=== PATIENT | male | born 1950 | race Caucasian/White ===

== ENCOUNTER 2021-03-22 16:58 | Outpatient (CLI) | payer MEDICARE, SELFPAY ==
[2021-03-22 17:43] LABS: Hematocrit 39.2 % (37.0-46.0); Hemoglobin 13.7 g/dL (12.4-15.3); Mean Corpuscular HGB Conc 34.9 g/dL (32.0-36.0); Mean Corpuscular Hemoglobin 36.4 pg (27.0-31.0); Mean Corpuscular Volume 104.3 fL (78.0-102.0); Mean Platelet Volume 11.2 fl (8.7-11.0); Platelet Count Result 192 K/mm3 (150-420); Red Blood Count 3.76 M/mm3 (4.70-6.10); Red Cell Distribution Width 12.2 % (11.6-14.4); White Blood Count 6.1 K/mm3 (4.8-10.8)
[2021-03-22 19:00] LABS: Erythrocyte Sedimentation Rate 23 mm/hr (0-20)
[2021-03-22 19:50] LABS: Alanine Aminotransferase 25 U/L (16-63); Alkaline Phosphatase 75 U/L (46-116); Anion Gap 12 mmol/L (8-16); Aspartate Amino Transferase 22 U/L (15-37); Bilirubin,Total 0.5 mg/dL (0.00-1.00); Blood Urea Nitrogen 14 mg/dL (7-18); CRP < 0.5 mg/dL (0.0-0.9); Calcium 8.9 mg/dL (8.5-10.1); Carbon Dioxide 29 mmol/L (21-32); Chloride 101 mmol/L (98-108); Cholesterol 222 mg/dL (0-200); Estimated Glomerular Filt Rate > 60; Glucose 89 mg/dL (70-99); HDL Direct 59 mg/dL (40-60); LDL Cholesterol Calculated 134 mg/dL (<130); Osmolality Calculated 293 mOsm/kg (285-295); Potassium 4.1 mmol/L (3.5-5.1); Sodium 142 mmol/L (136-145); Total Protein 7.4 g/dL (6.4-8.2); Triglycerides 146 mg/dL (0-150); Vitamin B12 805 pg/mL (193-986)
[2021-03-22 19:51] LABS: Folic Acid > 20.0 ng/mL (8.6->20)
[2021-03-22 19:52] LABS: Thyroid Stimulating Hormone Reflex 1.15 u/IU/mL (0.36-3.74)
[2021-03-27 14:25] LABS: Vitamin D 25 Hydroxy 64 ng/mL (30-100)
[2021-03-29 11:43] LABS: Gliadin AB, IgG 4 Units (<20); Reticulin IgA Negative (Negative); TTG IGA AB 1 U/mL (<4)
== END 2021-03-22 16:59 | disposition home or self-care (01) ==
LOC: CHSLAB 17:02
PROVIDERS: PCP Family Medicine; Visit Provider Family Medicine
DX: E11.9 Type 2 diabetes mellitus without complications (principal); I10 Essential (primary) hypertension; E53.8 Deficiency of other specified B group vitamins; Z79.899 Other long term (current) drug therapy
CPT/HCPCS: 36415; 80053; 80061; 82306; 82607; 82746; 83516; 84443; 85027; 85652; 86140; 86255

== ENCOUNTER 2021-03-27 12:27 | Outpatient (CLI) | payer MEDICARE, SELFPAY ==
[2021-03-27 12:55] LABS: Occult Blood Negative (Negative)
[2021-03-27 12:56] LABS: Occult Blood Negative (Negative)
[2021-03-27 12:56] LABS: Occult Blood Negative (Negative)
[2021-04-02 01:18] LABS: Calprotectin, Stool 197 mcg/g
[2021-04-03 01:33] LABS: Lactoferrin, Stool Positive (Negative)
[2021-04-04 04:02] LABS: FECFAT Total Specimen Weight 18 g
== END 2021-03-27 12:28 | disposition home or self-care (01) ==
PROVIDERS: PCP Family Medicine; Visit Provider Family Medicine
DX: I10 Essential (primary) hypertension (principal); K52.9 Noninfective gastroenteritis and colitis, unspecified
CPT/HCPCS: 82272; 82710; 83630; 83993; 87177; 87209; 87324

== ENCOUNTER 2022-11-15 16:20 | Outpatient (RCR) | payer MEDICARE, SELFPAY ==
--- NOTE | 2022-11-15 17:00 | PTOPEVAL1 ---
Assessment and note entered by JT File, PT Evaluation Information Assessment Status Evaluation Diagnosis R olecranon fracture Onset 10/01/22 Subjective Information patient reports he fractured his R elbow on . he reports he was up on a ladder and at his home and he slipped and fell on the R elbow. he reports he had surgery on the R elbow on 10/04/22. he reports up until friday of this week he was in a brace of the R elbow. Reported Pain Level Pain Score 2: Self Report Assessment PT Clinical Summary mr. norton is a 72 yo man who presents to skilled PT services for evaluation and treatment of R elbow pain, weakness, and decreased rom following a fall and fractue. he is reovering from an olecranon fracture and ORIF of the R elbow. he displays decerased rom, strength, and pain in the R elbow. he would benefit from continued skilled PT services to improve his objective/functional deficits and return to his PLOF/QOL. Plan of Care Interventions Electrical Stimulation,Hot Pack/Cold Pack,Manual Therapy,Neuro Re-education,Patient/Caregiver Educati,Therapeutic Activities,Therapeutic Exercise PT Services Indicated Yes Treatment Frequency and 3x weekly for 12 visits Duration These treatments will address the objective and functional deficits as defined above. The patient will be advanced safely and appropriately in order for the patient to progress towards his/her prior level of function. Additional exercises will be introduced and as well as a comprehensive home exercise program upon discharge, if needed, ?to ensure carryover of functional gains achieved in the clinic. This treatment plan has been reviewed and agreement upon by the patient.
--- NOTE | 2022-12-12 16:03 | PTOPPROG ---
Assessment and note entered by Ciera Rivers, PT Evaluation Information Assessment Status Progress Diagnosis R olecranon fx Onset 10/01/22 Subjective Information Eric reports his right elbow is doing well overall. He still gets pain at night that wakes him up at a 4-5/10 level. He is able to perform all daily activities including lifting overhead. He does still struggle to straighten his right elbow. He will be leaving in a couple days to visit his mother out of state for a week. Assessment PT Clinical Summary Eric Cummins has completed 10 skilled PT visits following an ORIF for a right olecranon fx sustained on 10/01/22. He is reporting minimal to moderate pain that typically occurs at night and tightness when trying to extend the elbow. He is able to perform ADLs without limitations. He objectively demonstrates improved right elbow active and passive ROM as well as improved right elbow strength. 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 He will be out of town for one week and was instructed to continue home exercises. He will follow up with PT once he returns to reassess progress while not participating in formal PT. Plan of Care Interventions Electrical Stimulation,Hot Pack/Cold Pack,Manual Therapy,Patient/Caregiver Educati,Therapeutic Activities,Therapeutic Exercise PT Services Indicated Yes Treatment Frequency and 1 time a week for 2 visits Duration These treatments will address the objective and functional deficits as defined above. The patient will be advanced safely and appropriately in order for the patient to progress towards his/her prior level of function. Additional exercises will be introduced and as well as a comprehensive home exercise program upon discharge, if needed, ?to ensure carryover of functional gains achieved in the clinic. This treatment plan has been reviewed and agreement upon by the patient.
--- NOTE | 2023-01-01 12:12 | PTOPDC ---
Assessment and note entered by Ciera Rivers, PT Evaluation Information Assessment Status Discharge Diagnosis R Olecranon Fx Onset 10/01/22 Subjective Information Eric reports his right elbow is doing well overall. He still notes tightness in it but it is not preventing him from complete daily activities. He was able to play golf yesterday and had no pain during golf but had achiness afterwards. He feels his right elbow is doing well enough to discontinue formal PT. Reported Pain Level Pain Score 0: Self Report Assessment PT Clinical Summary Eric Cummins has completed 12 skilled PT visits following an ORIF for a right olecranon fracture sustained on 10/01/22. He is reporting the ability to perform all ADLs and even played a round of golf on 12/31/22 without difficulty. He objectively demonstrates improved right elbow AROM, improved right elbow strength, and improved functional abilities. He still has mild deficits in right elbow extension AROM however, he has functional motion and is independent in a home program to continue stretching and strengthening. He will be discharged from formal PT. Plan of Care PT Services Indicated Yes
== END 2023-01-01 14:05 | disposition home or self-care (01) ==
LOC: CHSPT 16:20
PROVIDERS: PCP Family Medicine; Visit Provider Orthopaedic Surgery
DX: S52.024D Nondisplaced fracture of olecranon process without intraarticular extension of right ulna, subsequent encounter for closed fracture with routine healing (principal)
CPT/HCPCS: 97014; 97110; 97140; 97161; G0283

== ENCOUNTER → 2025-06-27 15:27 | Outpatient (REF) | payer MEDICARE, SELFPAY ==
--- NOTE | 2025-06-27 15:27 | S_PTH ---
PATIENT: Eric Cummins LOC: [facility] U#:[id number] AGE/SX: 75/M ROOM: RE06/27/[address]: Savi Lind MD : [id number] BED: DIS: SPEC #: [id number] RECD: 06/28/25 07:32 STATUS: MICHAEL REJatin #: [id number] SUSAN: 06/27/25 15:[address]: Savi Lind DEPT: [facility] Surgical RECD BY: Cee Miranda ENTERED: 06/28/25 07:33 SP TYPE: Surgical OTHR DR: Russell Taylor DO Tissues: A - Cyst Procedures: Hematoxylin and Eosin Stain Gross and Microscopic Level 4
--- OUTSIDE RECORDS SUMMARY | 2025-06-27 18:06 | XMS_ITS | Clinical Summary ---
Author Organization [facility] Address [address] [place] [address] Care Team Providers Care Technical Support 1 Software Engineer Name Role Phone Unavailable Primary Care Provider Unavailabl e Source Comments [facility],non-owned Affiliates and Associated Physician Practices is amultiple site organization consisting of ambulatory clinics and hospital sitesin [place], [place], [place] and [place]. This disclosure is being madepursuant to the Care Everywhere program and may not contain all information available regarding this patient. Last updated 18.[facility] Social History Tobacco Use Types Packs/Day Years Used Date Smoking Tobacco: Never Assessed Sex and Gender Information Value Date Recorded Sex Assigned at Not on file Legal Sex Male 6:18 AM PARK MAINTAINER Gender Identity Not on file Sexual Orientation Not on file Plan of Treatment Upcoming Encounters Date Type Department Care Team (Late st Contact Info) Description 10/04/2025 11:20 AM PARK MAINTAINER Office Visit [facility] - Family Medicine [address] [place] [address] Edgard Najera DO [address] [place] [phone] Health Maintenance Due Date Last Done Comments HEPATITIS C SCREENING 03/24/1968 DTAP/TDAP/TD VACCINES (1 - Tdap) 1967 PNEUMOCOCCAL VACCINE 50+ (1 of 1 - PCV) 1998 ZOSTER VACCINE (1 of 2) 1998 Respiratory Syncytial Virus (RSV) Vaccine Pt: or over 60 yrs (1 - 1-dose 75+ series) 2023 DEPRESSION SCREENING 08/04/2024 COVID-19 VACCINE (1 - 2024-2 6 season) 2025 INFLUENZA VACCINE (#1) 2025 HEPATITIS B VACCINE Aged Out No longe r eligible based on patient's age to complete this topic HIB VACCINE Aged Out No longer eligi ble based on patient's age to complete this topic HPV VACCINE Aged Out No longer eligi ble based on patient's age to complete this topic MENINGOCOCCAL (Group B) VACC INE SHARED DECISION-MAKING Aged Out No longer eligibl e based on patient's age to complete this topic MENINGOCOCCAL GROUPS A/C/Y/W VACCINE Aged Out No longer eligible b ased on patient's age to complete this topic
--- OUTSIDE RECORDS SUMMARY | 2025-06-27 18:06 | XMS_ITS | Clinical Summary ---
Author Organization [facility] Address [address] [place] [address] Care Team Providers Care Cardiac Catheterization Technologist Name Role Phone Brown Steve MD Primary Care Provider Dinh Vidal MD Unavailable Allergies Active Allergy Reactions Criticality Noted Date Comments Atorvastatin Myalgias 09/02/2023 Lovastatin Myalgias 09/02/2023 Medications temazepam (RESTORIL) 30 MG capsule Take 1 capsule (30 mg total) by mouth nightly as needed for Sleep. Active cyclobenzaprine (FLEXERIL) 10 MG tablet Take 1 tablet (10 mg total) by mouth daily as needed for Muscle Spasms. 2 Active aspirin EC (ECOTRIN) 81 MG tablet Take 1 tablet (81 mg total) by mouth daily. 4 Active FLUoxetine (PROZAC) 20 MG capsule Take 1 capsule (20 mg total) by mouth daily. Active rosuvastatin (CRESTOR) 10 MG tablet Take 1 tablet (10 mg total) by mouth nightly at bedtime. 90 tablet 1 4 Active irbesartan (AVAPRO) 300 MG tabletIndications :Primary hypertension Take 1 tablet (300 mg total) by mouth daily. 90 tablet 3 5 Active clopidogrel (PLAVIX) 75 MG tabletIndications :AAA (abdominal aortic aneurysm) Take 1 tablet (75 mg total) by mouth daily. 90 tablet 3 5 Active Active Problems Problem Noted Date Diagnosed Date AAA (abdominal aortic aneurysm) 08/17/2024 Olecranon fracture, right, closed, initial encou nter 10/02/2022 Resolved Problems Problem Noted Date Diagnosed Date Resolved Date Weakness 08/21/2023 08/21/2023 Sleep disorder 08/21/2023 08/21/2023 Encounters Date Type Department Care Team Description 05/16/2025 Telephone [facility] [address] [place] [phone] Dinh Vidal MD Appointment Request 04/11/2025 Telephone [facility] [address] [place] [phone] Dinh Vidal MD Reschedule from Last 3 Months Family History Medical History Relation Comments Heart Attack Father Heart Attack Paternal Grandfather Relation Status Comments Brother Father Mother Paternal Grandfather Social History Tobacco Use Types Packs/Day Years Used Date Smoking Tobacco: Former Cigarettes Q uit: 2012 Smokeless Tobacco: Never Tobacco Cessation:Counseling Given: Not Answered Alcohol Use Standard Drinks/Week Comments Yes 10 (1 standard drink = 0.6 oz pu re alcohol) 10 drinks per week B1300 Health Literacy Answer Date Recor ded How often do you need to hav e someone help you when you read instructions, pamphlets, or other written material from your doctor or pharmacy? Never 08/17/2024 [facility] Utilities Answer Date Recorded In the past 12 months [facility] [employer], gas, oil, or water [employer] threatened to shut off services in your home? No 08/17/2024 Humiliation, Afraid, Rape, and Kick questionnair e Answer Date Recorded Within the last year, have y ou been afraid of your partner or ex-partner? No 08/17/2024 Within the last year, have y ou been humiliated or emotionally abused in other ways by your partner or ex-partner? No Within the last year, have y ou been kicked, hit, slapped, or otherwise physically hurt by your partner or ex-partner? No 08/17/2024 Within the last year, have y ou been raped or forced to have any kind of sexual activity by your partner or ex-partner? No 08/17/2024 Social Connection and Isolation Panel Answer Date Recorded In a typical week, how many times do you talk on the phone with family, friends, or neighbors? Twice a week 08/17/2024 How often do you get together with friends or re latives? Twice a week 08/17/2024 How often do you attend druze or jain serv ices? Never 08/17/2024 Do you belong to any clubs o r organizations such as druze groups, unions, fraternal or athletic groups, or school groups? No 08/17/2024 How often do you attend meet ings of the clubs or organizations you belong to? Never 08/17/2024 Are you , , di vorced, , never , or living with a partner? 08/17/2024 AUDIT-C Answer Date Recorded Q1: How often do you have a drink containing alcohol? Never 08/17/2024 Q2: How many drinks containi ng alcohol do you have on a typical day when you are drinking? Patient does not drink Q3: How often do you have si x or more drinks on one occasion? Never 08/17/2024 Overall Financial Resource Strain (CARDIA) Answe r Date Recorded How hard is it for you to pa y for the very basics like food, housing, medical care, and heating? Not hard at all 08/17/2024 [facility] [place] [facility] Occup[facility] Health - Occupational Stress Questionnaire Answer Date Recorded Do you feel stress - tense, restless, nervous, or anxious, or unable to sleep at night because your mind is troubled all the time - these days? Not at all 08/17/2024 Exercise Vital Sign Answer Date Recorde d On average, how many days pe r week do you engage in moderate to strenuous exercise (like a brisk walk)? 0 days 08/17/2024 On average, how many minutes do you engage in exercise at this level? 0 min 08/17/2024 Hunger Vital Sign Answer Date Recorded Within the past 12 months, y ou worried that your food would run out before you got the money to buy more. Never true 08/17/19 25 Within the past 12 months, t he food you bought just didn't last and you didn't have money to get more. Never true 08/17/2024 PRAPARE - Transportation Answer Date Re corded In the past 12 months, has l ack of transportation kept you from medical appointments or from getting medications? No 08/04 In the past 12 months, has l ack of transportation kept you from meetings, work, or from getting things needed for daily living? No 08/17/2024 Housing Stability Vital Sign Answer Dio e Recorded In the last 12 months, was t here a time when you were not able to pay the mortgage or rent on time? No 08/17/2024 In the past 12 months, how m any times have you moved where you were living? 0 08/17/2024 At any time in the past 12 m [facility], were you homeless or living in a prison (including now)? No 08/17/2024 Sex and Gender Information Value Date Recorded Sex Assigned at Male 08/17/2024 10:06 AM GEOPHYSICAL DRAFTER Legal Sex Male 7:15 AM GEOPHYSICAL DRAFTER Gender Identity Not on file Sexual Orientation Not on file Last Filed Vital Signs Vital Sign Reading Time Taken Comments Blood Pressure 144/82 09/22/2024 8:35 AM GEOPHYSICAL DRAFTER Pulse 62 09/22/2024 8:35 AM GEOPHYSICAL DRAFTER Temperature 36.8 C (98.2 F) 08/18/2024 8:54 AM GEOPHYSICAL DRAFTER Respiratory Rate 16 09/22/2024 8:35 AM GEOPHYSICAL DRAFTER Oxygen Saturation 94% 09/22/2024 8:35 AM GEOPHYSICAL DRAFTER Inhaled Oxygen Concentration - - Weight 60.3 kg (133 lb) 09/22/2024 8:35 AM GEOPHYSICAL DRAFTER Height 171.5 cm (5' 7.5) 09/22/2024 8:35 AM GEOPHYSICAL DRAFTER Body Mass Index 20.52 09/22/2024 8:35 AM GEOPHYSICAL DRAFTER Plan of Treatment Upcoming Encounters Date Type Department Care Team (Late st Contact Info) Description 08/23/2025 8:30 AM GEOPHYSICAL DRAFTER Office Visit [facility] [place] [address] Dinh Vidal MD [address] [facility] [address] [place] [address] Health Maintenance Due Date Last Done Comments Hepatitis C 1966 Hepatitis A Vaccines (1 of 2 - Risk 2-dose series) 1967 Pneumococcal Vaccine: 50+ Ye ars (1 of 2 - PCV) 1967 Zoster Vaccines (1 of 2) 1998 Annual Medicare Wellness Visit 2013 RSV Immunization or 60+ Years (1 - 1-dose 75+ series) 2023 COVID-19 Vaccine (1 - 2024-2 6 season) 2025 Influenza Adult (#1) 2025 DTaP, Tdap and Td Vaccines ( 2 - Td or Tdap) 02/10/2028 02/09/2018 Meningococcal B Vaccine Aged Out No l onger eligible based on patient's age to complete this topic Meningococcal Vaccine Aged Out No alisia batsheva eligible based on patient's age to complete this topic RSV Immunizations Under 20 Months Aged Out No longer eligible based on patient's age to complete this topic Medical Devices Implanted Type Area Premium Auditor Device Identifier Shelf Expiration Date Model / Serial / Lot Medtronic Endudrant Ii Bifurcated 25mm X 14mm X 103mm-08/17/2024 Implanted:Qty: 1 on 08/17/2024 by Mercy Bolanos MD [employer] 05/21/2026 [id number] / [id number] / Medtronic Endurant Ii 16mm X 16mm X 124mm-08/17/2024 Implanted:Qty: 1 on 08/17/2024 by Mercy Bolanos MD [employer] 01/14/2026 [id number] / [id number] / Ev3 Visi-Pro 9mm X 27mm X 135mm-08/17/2024 Implanted:Qty: 1 on 08/17/2024 by Mercy Bolanos MD [employer] 02/26/2025 / / [id number] Ev3 Visi-Pro 10mm X 27mm X 135mm-08/17/2024 Implanted:Qty: 1 on 08/17/2024 by Mercy Bolanos MD [employer] ([employer]) 12/19/2025 [id number] / / [id number] 4-Hole Elbow Plate-Right Implanted:Qty: 1 on 10/04/2022 by Augustin Hahn MD at [facility] Right: Elbow [id number] / / 3.5x22mm Nl Screw Implanted:Qty: 1 on 10/04/2022 by Augustin Hahn MD at [facility] Right: Elbow [id number] / / 3.5x16mm Locking Screw Implanted:Qty: 2 on 10/04/2022 by Augustin Hahn MD at [facility] Right: Elbow [id number] / / 3.5x14mm Locking Screw Implanted:Qty: 1 on 10/04/2022 by Augustin Hahn MD at [facility] Right: Elbow [id number] / / 3.5x60mm Nl Screw Implanted:Qty: 1 on 10/04/2022 by Augustin Hahn MD at [facility] Right: Elbow [id number] / / 3.5x26mm Nl Screw Implanted:Qty: 1 on 10/04/2022 by Augustin Hahn MD at [facility] Right: Elbow [id number] / / 3.5x24mm Locking Screw Implanted:Qty: 1 on 10/04/2022 by Augustin Hahn MD at [facility] Right: Elbow [id number] / / 3.5x28mm Locking Screw Implanted:Qty: 1 on 10/04/2022 by Augustin Hahn MD at [facility] Right: Elbow [id number] / / Explanted Type Area Premium Auditor Device Identifier Shelf Expiration Date Model / Serial / Lot [id number] Drill Bit Explanted:Qty: 2 on 10/04/[address] [facility] Right: Elbow [id number] / / Insurance MEDICARE COUNTRY INSURANCE Advance Directives * Full Code (Latest Code Status on File) Date Activated Date Inactivated Comments 08/17/2024 9:01 AM 08/18/2024 1:22 PM Care Teams Cardiac Catheterization Technologist Relationship Specialty Start Date End Date Brown Steve MD [address] [place] [address] PCP - General FAMILY PRACTICE 06/22/22 Dinh Vidal MD [address] [facility] [address] [place] [address] [place] Barrel Cleaner INTERVENTIONAL CARDIOLOGY 04/11/25
--- OUTSIDE RECORDS SUMMARY | 2025-06-27 18:06 | XMS_ITS | Encounter Summary ---
Author Organization [facility] Address [facility] [place] [address] Care Team Providers Care Clerk Cashier Name Role Phone Brown Steve MD Primary Care Provider [phone] Mercy Bolanos MD Unavailable [phone] Dinh Vidal MD Unavailable [phone] Encounter Details Date Type Department Care Team (Late st Contact Info) Description 10/04/2024 Luv Rink Message Enc [facility] [address] [place] [phone] [facility]enn[facility], [facility] Provider results Social History Tobacco Use Types Packs/Day Years Used Date Smoking Tobacco: Former Cigarettes Q uit: 2012 Smokeless Tobacco: Never Alcohol Use Standard Drinks/Week Comments Yes 10 (1 standard drink = 0.6 oz pu re alcohol) 10 drinks per week B1300 Health Literacy Answer Date Recor ded How often do you need to hav e someone help you when you read instructions, pamphlets, or other written material from your doctor or pharmacy? Never 08/17/2024 [facility] Utilities Answer Date Recorded In the past 12 months has [employer], gas, oil, or water [employer] threatened to shut off services in your [...] week 08/17/2024 How often do you attend jain or gnosticism serv ices? Never 08/17/2024 Do you belong to any clubs o r organizations such as jain groups, unions, fraternal or athletic groups, or [...] and heating? Not hard at all 08/17/2024 [facility] Occupat ional Health - Occupational Stress [...] any time in the past 12 m [facility], were you homeless or living in a mcc (including now)? No 08/17/2024 Sex and Gender Information Value Date Recorded Sex Assigned at Male 08/17/2024 10:06 AM PUBLIC RELATIONS SUPERVISOR Legal Sex Male 7:15 AM PUBLIC RELATIONS SUPERVISOR Gender Identity Not on file Sexual Orientation Not on file documented as of this encounter Functional Status * Are you deaf or do you have serious difficulty hearing Answer Date of Assessment Author Status No 08/17/2024 4:00 PM Antonietta Kendall RN Active * Are you blind or do you have serious difficulty seeing, even when wearing glasses? Answer Date of Assessment Author Status No 08/17/2024 4:00 PM Antonietta Kendall RN Active * Do you have serious difficulty walking or climbing stairs? Answer Date of Assessment Author Status No 08/17/2024 4:00 PM Antonietta Kendall, RN Active * Do you have difficulty dressing or bathing? Answer Date of Assessment Author Status No 08/17/2024 4:00 PM Antonietta Kendall, RN Active * Because of a physical, mental, or emotional condition, do you have difficulty doing errands alone such as visiting a doctor's office or shopping? Answer Date of Assessment Author Status No 08/17/2024 4:00 PM PUBLIC RELATIONS SUPERVISOR Antonietta Bryant, RN Active documented as of this encounter Mental Status * Because of a physical, mental, or emotional condition, do you have serious difficulty concentrating, remembering, or making decisions? Answer Entry Date Author Status No 08/17/2024 4:00 PM Antonietta Kendall, RN Active documented in this encounter Plan of Treatment Upcoming Encounters Date Type Department Care Team (Late st Contact Info) Description 08/23/2025 8:30 AM PUBLIC RELATIONS SUPERVISOR Office Visit [facility] [address] [place] [address] Dinh Vidal MD [address], [place] [id number] [place] [address] documented as of this encounter Visit Diagnoses Not on filedocumented in this encounter Care Teams Clerk Cashier Relationship Specialty Start Date End Date Brown Steve MD [address] [place] [address] PCP - General FAMILY PRACTICE 06/22/22 Mercy Bolanos MD [address] [place] [address] INTERVENTIONAL CARDIOLOGY 07/09/23 04/10/25 Dinh Vidal MD [address], [facility] [address] [place] [address] Thelma Caustic Cresylate Shift Superintendent INTERVENTIONAL CARDIOLOGY 04/11/25 documented as of this encounter
--- OUTSIDE RECORDS SUMMARY | 2025-06-27 18:06 | XMS_ITS | Encounter Summary ---
Author Organization [facility] Address [address] [place] [address] Care Team Providers Care Hand Mexican Food Maker Name Role Phone Brown Steve MD Primary Care Provider Mercy Bolanos MD Unavailable [phone] Dinh Vidal MD Unavailable [phone] Encounter Details Date Type Department Care Team (Late st Contact Info) Description 12/10/2023 Abstract [facility] [address] [place] [address] Mercy Bolanos MD [address] [place] [address] Social History Tobacco Use Types Packs/Day Years Used Date Smoking Tobacco: Former Cigarettes Smokeless Tobacco: Never Alcohol Use Standard Drinks/Week Comments Yes 0 (1 standard drink = 0.6 oz pur e alcohol) 10 drinks per week Sex and Gender Information Value Date Recorded Sex Assigned at Male 08/17/2024 10:06 AM CANDLEMAKER Legal Sex Male 7:15 AM CANDLEMAKER Gender Identity Not on file Sexual Orientation Not on file documented as of this encounter Plan of Treatment Upcoming Encounters Date Type Department Care Team (Late st Contact Info) Description 08/23/2025 8:30 AM CANDLEMAKER Office Visit [facility] [place] [phone] Dinh Vidal MD [address] [facility] [address] [place] [address] documented as of this encounter Visit Diagnoses Not on filedocumented in this encounter Care Teams Hand Mexican Food Maker Relationship Specialty Start Date End Date Brown Steve MD [address] [place] [phone] PCP - General FAMILY PRACTICE 06/22/22 Mercy Bolanos MD [address] [place] [phone] INTERVENTIONAL CARDIOLOGY 07/09/23 04/10/25 Dinh Vidal MD [address] [facility] [address] [place] [address] [place] Proteomics Scientist INTERVENTIONAL CARDIOLOGY 04/11/25 documented as of this encounter
--- OUTSIDE RECORDS SUMMARY | 2025-06-27 18:06 | XMS_ITS | Encounter Summary ---
Author Organization [facility] Address [address] [place] [id number] Care Team Providers Care Supervising Chef Name Role Phone Brown Steve MD Primary Care Provider [phone] Mercy Bolanos MD Unavailable [phone] Dinh Vidal MD Unavailable [phone] Encounter Details Date Type Department Care Team (Late st Contact Info) Description 08/29/2023 Abstract [facility] [address] [place] [address] Mercy Bolanos MD [address] [place] [address] Social History Tobacco Use Types Packs/Day Years Used Date Smoking Tobacco: Former Cigarettes Smokeless Tobacco: Never Alcohol Use Standard Drinks/Week Comments Yes 0 (1 standard drink = 0.6 oz pur e alcohol) 10 drinks per week Sex and Gender Information Value Date Recorded Sex Assigned at Male 08/17/2024 10:06 AM JAI ALAI PLAYER Legal Sex Male 7:15 AM JAI ALAI PLAYER Gender Identity Not on file Sexual Orientation Not on file documented as of this encounter Plan of Treatment Upcoming Encounters Date Type Department Care Team (Late st Contact Info) Description 08/23/2025 8:30 AM JAI ALAI PLAYER Office Visit [facility] [place] [phone] Dinh Vidal MD [address] [facility] [address] [place] [address] documented as of this encounter Procedures Procedure Name Priority Date/Time Associated Diagnosis Comments CMP (ABSTRACTED LAB) Routine 06/05/2023 LIPID PANEL Routine 06/05/2023 documented in this encounter Results * (ABNORMAL) LIPID PANEL (06/05/2023) CHOLESTEROL 225(A) 100 - 199 [facility] HDL 73 >39 [facility] TRIGLYCERIDES 79 0 - 149 [facility] CHOL/HDL RATIO 3.1 0 - 5 [facility] LDL (CALCULATED) 138(A) 0 - 99 [facility] VLDL CALCULATION 14 5 - 40 [facility] 06/05/2023 Brown Steve MD LABORATORY Final Resul t [facility] [address] [place] [address] * (ABNORMAL) CMP (ABSTRACTED LAB) (06/05/2023) SODIUM S/P/B 135 134 - 144 [facility] POTASSIUM S/P/B 4.5 3.5 - 5.2 [facility] CHLORIDE S/P/B 96 96 - 106 [facility] CO2 26 20 - 29 [facility] BUN 20 8 - 27 [facility] CREATININE S/P/B 0.98 0.76 - 1.27 [facility] CALCIUM S/P/B 9.1 8.6 - 10.2 [facility] GLUCOSE 108(A) 70 - 99 mg/dL [facility] TOTAL PROTEIN S/P/B 7.1 6 - 8.5 [facility] ALBUMIN S/P/B 4.3 3.8 - 4.8 [facility] AST 15 0 - 40 [facility] ALT 6 0 - 44 [facility] ALKALINE PHOSPHATASE S/P/B 70 44 - 121 [facility] BILIRUBIN TOTAL S/P/B 0.9 0 - 1.2 [facility] 06/05/2023 us Brown Steve MD LAB-OUTSIDE/ABSTRACTED Esperanza varma Result [facility] [address] [place] [address] documented in this encounter Visit Diagnoses Not on filedocumented in this encounter Care Teams Supervising Chef Relationship Specialty Start Date End Date Brown Steve MD [address] [place] [address] PCP - General FAMILY PRACTICE 06/22/22 Mercy Bolanos MD [address] [place] [phone] INTERVENTIONAL CARDIOLOGY 07/09/23 04/10/25 Dinh Vidal MD [address] [facility] [address] [place] [address] [place] [employer] INTERVENTIONAL CARDIOLOGY 04/11/25 documented as of this encounter
--- OUTSIDE RECORDS SUMMARY | 2025-06-27 18:06 | XMS_ITS | Encounter Summary ---
Author Organization [facility] Address [facility] [place] [address] Care Team Providers Care Senior Linux Administrator Name Role Phone Brown Steve MD Primary Care Provider [phone] Mercy Bolanos MD Unavailable [phone] Dinh Vidal MD Unavailable [phone] Encounter Details Date Type Department Care Team (Late st Contact Info) Description 08/19/2024 Hospital Follow-up Call [facility] [address] [place] [address] Roberta Steve, RN Social History Tobacco Use Types Packs/Day Years [...] from your doctor or pharmacy? Never 08/17/2024 [facility] Utilities Answer Date Recorded In the past 12 months has e [employer] gas, oil, or water [employer] threatened to shut off services in your [...] week 08/17/2024 How often do you attend restorationist or samaritan serv ices? Never 08/17/2024 Do you belong to any clubs o r organizations such as restorationist groups, unions, fraternal or athletic groups, or [...] and heating? Not hard at all 08/17/2024 [facility] - Occupational Stress [...] any time in the past 12 m [facility], were you homeless or living in a half-way (including now)? No 08/17/2024 Sex and Gender Information Value Date Recorded Sex Assigned at Male 08/17/2024 10:06 AM CLERICAL AIDE Legal Sex Male 7:15 AM CLERICAL AIDE Gender Identity Not on file Sexual Orientation Not on file documented as of this encounter Functional Status * Are you deaf or do you have serious difficulty hearing Answer Date of Assessment Author Status No 08/17/2024 4:00 PM Antonietta Kendall, RN Active * Are you blind or do you have serious difficulty seeing, even when wearing glasses? Answer Date of Assessment Author Status No 08/17/2024 4:00 PM Antonietta Kendall, RN Active * Do you have serious [...] Assessment Author Status No 08/17/2024 4:00 PM CLERICAL AIDE Parmenter, Antonietta N, RN Active documented as of this encounter Mental Status * Because of a physical, mental, or emotional condition, do you have serious difficulty concentrating, remembering, or making decisions? Answer Entry Date Author Status No 08/17/2024 4:00 PM CLERICAL AIDE Antonietta Bryant RN Active documented in this encounter Plan of Treatment Upcoming Encounters Date Type Department Care Team (Late st Contact Info) Description 08/23/2025 8:30 AM CLERICAL AIDE Office Visit [facility] [address] [place] [address] Dinh Vidal MD [address] , [facility] [address] [place] [address] documented as of this encounter Visit Diagnoses Not on filedocumented in this encounter Care Teams Senior Linux Administrator Relationship Specialty Start Date End Date Brown Steve MD [address] [place] [address] PCP - General FAMILY PRACTICE 06/22/22 Mercy Bolanos MD [address] [place] [address] INTERVENTIONAL CARDIOLOGY 07/09/23 04/10/25 Dinh Vidal MD [address] , [facility] [address] [place] [address] [employer] INTERVENTIONAL CARDIOLOGY 04/11/25 documented as of this encounter
== END ==
LOC: ANHLAB 15:27
PROVIDERS: PCP Family Medicine; Visit Provider Plastic Surgery
DX: L72.3 Sebaceous cyst (principal)
CPT/HCPCS: 88305